=== PATIENT | male | born 1965 | race Caucasian/White ===

== ENCOUNTER → 2016-10-15 | Outpatient (CLI) | payer MEDICAID ==
[~2016-10-15] MED LIST: ACET1TAB40 PO; TRET10CA PO
--- NOTE | 2016-10-15 08:47 | RADRPT ---
PROCEDURE: Complete abdominal ultrasound. CLINICAL INDICATION: Abdominal pain, hepatitis B TECHNIQUE: Perry scale and color doppler ultrasound images of the abdomen. COMPARISON: Abdominal ultrasound 02/20/2016 FINDINGS: Pancreas: Visualized portions appear of normal echogenicity, no focal lesions. Liver: Morphology: Normal in size and contour. Measures 12.2 cm. Echogenicity: Mildly increased echogenicity of the liver suggestive of hepatic steatosis. Focal lesions: None. Main portal vein: Patent with hepatopetal flow. Biliary System: Normal appearing gallbladder wall. No gallstones seen. No intrahepatic biliary dilatation. Common bile duct diameter: 3.2 mm Kidneys: Right length: 11.4 cm. Right renal cortical thickness is preserved. Left length: 10.6 cm. Left renal cortical thickness is preserved. Normal echogenicity. No hydronephrosis. No renal calculi. No focal renal lesions. Spleen: Normal in size, no focal lesions. Measures 11.4 cm. No free fluid identified. Normal caliber of the partially visualized aorta. IMPRESSION: Mildly increased echogenicity of the liver echotexture suggestive of hepatic steatosis. No definite evidence of contour nodularity to suggest changes of cirrhosis. Normal gallbladder without gallstones. RPTAT: AADD .Camilo Francis MD, MD Date Time Electronically viewed and signed by .Camilo Francis MD, on 10/15/2016 08:47 .B/
== END | disposition home or self-care (01) ==
LOC: U/S 07:22
PROVIDERS: ATTEND Internal Medicine Hepatology
DX: B19.10 Unspecified viral hepatitis B without hepatic coma (principal)
CPT/HCPCS: 76700

== ENCOUNTER → 2017-06-17 | Outpatient (CLI) | END | disposition home or self-care (01) ==

== ENCOUNTER → 2018-05-27 | Outpatient (CLI) | payer MEDICAID | END | disposition home or self-care (01) | LOC: U/S 09:18 | PROVIDERS: ATTEND Internal Medicine Hepatology | DX: B18.1 Chronic viral hepatitis B without delta-agent (principal) | CPT/HCPCS: 76700 ==

== ENCOUNTER → 2018-12-14 | Outpatient (CLI) | payer MEDICAID | END | disposition home or self-care (01) | LOC: U/S 08:04 | PROVIDERS: ATTEND Internal Medicine Hepatology | DX: B18.1 Chronic viral hepatitis B without delta-agent (principal) | CPT/HCPCS: 76700 ==